=== PATIENT | female | born 1935 | race Caucasian/White ===

== ENCOUNTER → 2017-01-17 | Outpatient (CLI) | payer MEDICARE, BC ==
[~2017-01-17] MED LIST: ACARBOSE50 MG PO; AMARYL4 MG PO; APRESOLINE25 MG PO; B6-FOLIC ACID1 CAP PO; COUMADIN2.5 M1 PO; JANUVIA100 MG PO; K-DUR20 MEQ PO; LASIX20 MG PO; LIPITOR20 MG PO; SOTALOL80 MG PO
== END | disposition home or self-care (01) ==
LOC: RAD 10:58
DX: M85.88 Other specified disorders of bone density and structure, other site (principal)

== ENCOUNTER 2017-05-06 14:01 | Inpatient (IN) | payer MEDICARE, BC ==
[2017-05-06] VITALS (7 sets, daily range): BP systolic 140–176; BP diastolic 62–84
[~2017-05-06] VITALS: Ht 167.6 cm; Wt 71.2 kg
[~2017-05-06 14:01] MED LIST changes: +AMARYL2 MG PO; -AMARYL4 MG PO
[2017-05-06 14:46] LABS: BASO % 0.4 % (0.0-1.0); EOS % 0.1 % (1.0-4.0); HEMATOCRIT 31.5 % (37.0-47.0); HEMOGLOBIN 9.9 g/dl (12.0-16.0); MEAN CELL VOLUME 96.3 fl (81.0-99.0); MEAN CORPUSCULAR HGB 30.3 pg (27.0-31.0); MEAN CORPUSCULAR HGB CONC 31.4 g/dl (33.0-37.0); MEAN PLATELET VOLUME 8.9 fl (9.6-12.3); MONO # 0.4 10*3/uL (0.1-1.0); MONO % 4.7 % (3.0-9.0); NEUT % 80.3 % (47.0-73.0); PLATELET COUNT AUTOMATED 288 10*3/uL (130-400); RED BLOOD COUNT 3.27 10*6/uL (4.10-5.10); RED CELL DISTRI WIDTH 16.1 % (0-14.5); WHITE BLOOD COUNT 7.5 10*3/uL (4.8-10.8)
[2017-05-06 14:55] LABS: ACT PARTIAL THROMBO TIME 34.1 SECONDS (20.8-31.5); INTERNATIONAL NORM RATIO 2.5 (2.0-3.5)
[2017-05-06 14:57] LABS: CREATININE 1.45 mg/dL (0.55-1.02); POTASSIUM 4.6 mmol/L (3.5-5.1)
[2017-05-06 16:06] LABS: BILIRUBIN NEGATIVE (NEGATIVE); BLOOD NEGATIVE (NEGATIVE); CLARITY CLEAR (CLEAR); COLOR YELLOW (YELLOW); GLUCOSE NEGATIVE (NEGATIVE); KETONE NEGATIVE (NEGATIVE); LEUKO ESTERASE NEGATIVE (NEGATIVE); NITRITE NEGATIVE (NEGATIVE); UROBILINOGEN 0.2 E.U./dl (0.2-1.0)
[2017-05-06 16:12] LABS: BACTERIA 2+
[2017-05-06 16:14] LABS: RBC 0-2 rbc/hpf (0-2)
--- NOTE | 2017-05-06 17:55 | NUR ---
Time: 1754 A 82 year old FEMALE admitted to 5E under services of BROCK SEQUEIRA DO. Pt. arrived via bed from ER. Chief complaint: LEFT RADIAL HEAD FRACTURE. JULIANNE SANFORD
[2017-05-06] MEDS ORDERED: ALENDRONATE SOD70 M1 PO (18:26)
[2017-05-06] MEDS ORDERED: AMIODARONE HCL200 MG PO (18:27)
[2017-05-06] MEDS ORDERED: LANTUS SOL100 UNIT/1 SQ (18:29)
[2017-05-06] MEDS ORDERED: OMEPRAZOLE D/R20 MG PO (18:30)
[2017-05-06] MEDS ORDERED: OYSTER SHELL C500 M4 PO (18:31)
[2017-05-06] MEDS ORDERED: POLYSACC IRON150 MG PO (18:31)
--- NOTE | 2017-05-06 20:00 | NUR ---
ASSUMED CARE OF PATIENT. ASSESSMENT COMPLETE. RESTING IN BED. DENIES ANY PAIN AT THIS TIME. CALL LIGHT WITHIN REACH. WILL CONTINUE TO MONITOR.
[2017-05-07] VITALS: BP 138/56
--- NOTE | 2017-05-07 02:03 | NUR ---
PAIN MEDICATION NORCO ADMINISTERED PER PATIENTS REQUEST. RATES PAIN 7/10. WILL EVALUATE FOR EFFECTIVNESS.
--- NOTE | 2017-05-07 03:00 | NUR ---
EARLIER NORCO APPEARS TO BE EFFECTIVE. PT SLEEPING. RESP EASY AND NONLABORED ON ROOM AIR. NO DISTRESS NOTED. CALL LIGHT IN REACH
--- NOTE | 2017-05-07 06:19 | NUR ---
PT BS 75, ORANGE JUICE GIVEN AT THIS TIME. PT ASYMPTOMATIC.
[2017-05-07 06:48] LABS: BASO % 0.5 % (0.0-1.0); EOS % 0.4 % (1.0-4.0); HEMATOCRIT 27.7 % (37.0-47.0); HEMOGLOBIN 8.6 g/dl (12.0-16.0); LYMPH # 1.5 10*3/uL (1.3-4.4); MEAN CELL VOLUME 97.5 fl (81.0-99.0); MEAN CORPUSCULAR HGB 30.3 pg (27.0-31.0); MEAN PLATELET VOLUME 9.3 fl (9.6-12.3); MONO # 0.5 10*3/uL (0.1-1.0); MONO % 6.3 % (3.0-9.0); NEUT % 74.3 % (47.0-73.0); PLATELET COUNT AUTOMATED 260 10*3/uL (130-400); RED BLOOD COUNT 2.84 10*6/uL (4.10-5.10); RED CELL DISTRI WIDTH 16.3 % (0-14.5); WHITE BLOOD COUNT 8.1 10*3/uL (4.8-10.8)
[2017-05-07 07:04] LABS: ALBUMIN 2.5 gm/dl (3.1-4.5); CREATININE 1.32 mg/dL (0.55-1.02); PHOSPHOROUS 3.2 mg/dL (2.5-4.9); POTASSIUM 4.1 mmol/L (3.5-5.1)
[2017-05-07 07:08] LABS: FREE T4 1.59 ng/dl (0.76-1.46); THYROID STIM HORMONE (HS) 0.551 uIU/ml (0.358-4.75)
--- NOTE | 2017-05-07 07:30 | NUR ---
PT RESTING IN BED. RESP-EASY AND REGULAR. NO C/O PAIN AT THIS TIME. SLING ON LEFT ARM. CALL LIGHT IN REACH. SEE SHIFT ASSESSMENT.
[2017-05-07 07:55] LABS: VITAMIN D, 25-HYDROXY 26.8 ng/mL (30-100)
[2017-05-07 08:00] VITALS: BP 139/57
--- NOTE | 2017-05-07 10:05 | NUR ---
RAJAN MARINELLI OFFICE REGARDING PT COUMADIN AND MANAGEMENT OF IT PER DR. JIANG. THEY WILL CALL BACK AFTER THEY ASK HIM.
--- NOTE | 2017-05-07 10:21 | NUR ---
Button Sewing Machine Operator in to talk to patient. Patient states lives at home with her . There are 3 steps in the home. Physician: Eleuterio Crump Pharmacy: [facility] Home health services: no Patient's level of ADLs: MAX ASSIST Patient has working utilities: yes DME: walker Follow-up physician's appointment after d/c: will be made by hospitalist nurse director upon discharge. Does patient want to access PORTAL?: no Discharge plan: will have life care planner/delinquency prevention social worker follow up with patient. Patient was discharged from [facility] yesterday where she was receiving therapy after a knee replacement and was trying to walk up the steps to her house. She states the steps are bigger than the therapy steps, as she was trying to lift her leg up to the next step she fell backwards. She does have a hospital bed at home. Previous to this incident per the patient she was able to perform ADLs and drive. RYAN LYNCH
--- NOTE | 2017-05-07 10:30 | NUR ---
PT ASSISTED UP TO BEDSIDE COMMODE. TOLERATED ROUTINE MED WITH NO PROBLEM. CALL LIGHT IN REACH.
--- NOTE | 2017-05-07 10:31 | NUR ---
PHYSICAL THERAPY PATIENT EVALUATED ON 5, FULL EVALUATION TO FOLLOW. CONTINUE WTH PT PER PLAN OF CARW WITH FALL, MAX (a) X 2, NWB LEFT UE AND SLING- ACUTE FRACTURE/NEEDS ORTHO CONSULT AND ACUTE DEBILITY PRECAUTIONS. RECOMMNED TRANSFER TO ANOTHER FACILITY WITH ORTHO FOR ACUTE ELBOW FRACTURE. WILL REQUIRE RETURN TO SNF FOR SIGNIFICANTLY IMPAIRED MOBILITY. PATIENT IS HIGH COMPLEIXYT VIA CHART RVIEW, TESTS AND EVALUAITON: 60750. THANK YOU FOR THIS REFERRAL. JESSIE RAMOS,PT
--- NOTE | 2017-05-07 10:34 | NUR ---
DR. OLAF MARINELLI OFFICE CALLED. PT IS TO DOUBLE UP ON DOSE OF COUMADIN 2/5MG FOR 2 DAYS THEN 4MG FOR 2 DAYS THEN 2MG DAILY. CALLED DR. JIANG MADE AWARE.
[2017-05-07 12:00] VITALS: BP 146/58
--- NOTE | 2017-05-07 12:00 | NUR ---
SITTING UP IN CHAIR. BSG-168, SEE EMAR. CALL LIGHT IN REACH.
--- NOTE | 2017-05-07 12:26 | NUR ---
CALLED DR. AGGARWAL LEFT MESSAGE ON CELL PHONE REGARDING CONSULT TO CALL BACK.
--- NOTE | 2017-05-07 12:40 | NUR ---
DR. AGGARWAL CALLED PER HIM NON SURGICAL TREATMENT WITH ARM SLING. AND SEE AFTER DISCHARGE OR AT [facility] IF PT IS GOING THERE.
--- NOTE | 2017-05-07 12:41 | NUR ---
CALLED DR. JIANG MADE AWARE OF DR. AGGARWAL RECOMMENDATIONS.
--- NOTE | 2017-05-07 12:55 | NUR ---
PHYSICAL THERAPY Rohini seen this PM for her therapy session. Pt with Fx left elbow, NWB with sling and did well. Transfer sit/stand, standing balance with cues to lean forward for her standing balance with start off with MAX A X 1, into MOD A X 1, gait pivot and sit at bedside. Followed by transfer onto her bedside commode MOD CHRISTIAN MINISTRIES PROFESSOR X 1, then back supine in bed MOD/MAX A X 1, present and said that he is having a hard time with Rohini at home, Pt with call light going to stay. ISIS NUNN BROOCH AND BRACELET MAKER.
--- NOTE | 2017-05-07 13:36 | NUR ---
NATALIA FAXED REFERRAL TO [facility].
--- NOTE | 2017-05-07 13:36 | NUR ---
SW SPOKE WITH PT THIS MORNING. PT AGREED TO HAVE REFERRAL SENT TO [facility]. PT WAS AT FACILITY RECENTLY.
--- NOTE | 2017-05-07 14:00 | NUR ---
RESTING IN BED WITH AT HER SIDE. RESP-EASY AND REGULAR. NO C/O AT THIS TIME. CALL BRANDI NAM.
--- NOTE | 2017-05-07 15:44 | NUR ---
SW SPOKE WITH PT AND REGARDING WHICH FACILITY A REFERRAL NEEDED SENT TO. DID NOT LIKE THE CARE THAT THE PT RECEIVED AT [facility]. SW GAVE NAMES OF FACILITIES IN THE AREA. DID NOT WANT [facility]. WILL CHECK OUT [facility]. LIKED THE CARE THAT PT RECEIVED FROM [facility] BUT DOES NOT WANT TO DRIVE 50 MILES A DAY TO VISIT PT. WILL LET SW KNOW SATURDAY WHICH FACILITY TO SEND REFERRAL TO. NATALIA INFORMED PT AND PT MAY BE DISCHARGED EARLY 05-09-17 AFTER HER 3 NIGHT SATY.
[2017-05-07 16:00] VITALS: BP 145/48
--- NOTE | 2017-05-07 16:00 | NUR ---
RESTING IN BED WITH AT HER SIDE. BSG-180, SEE EMAR. NO C/O AT THIS TIME. CALL LIGHT IN REACH. SEE SHIFT ASSESSMENT.
--- NOTE | 2017-05-07 16:38 | NUR ---
Patient not available for OT evaluation this pm. She is with nursing at this time. OTR will recheck at a later date. Thank you for this referral. Maria A Hoskins OTR/l
--- NOTE | 2017-05-07 18:00 | NUR ---
RESTING IN BED. ENCOURAGED TCDB. TOLERATED ROUTINE MED WITH NO PROBLEM. CALL LIGHT IN REACH.
--- NOTE | 2017-05-07 18:40 | NUR ---
PT C/O LEFT ELBOW PAIN RATES PAIN 8 ON PAIN SCALE 0-10. MEDICATED WITH NORCO PO PER PRN ORDER, SEE EMAR. CALL LIGHT IN REACH.
[2017-05-07 20:00] VITALS: BP 144/57
--- NOTE | 2017-05-07 20:18 | NUR ---
PATIENT RESTING COMFORTABLY IN BED WATCHING TV. SLING IN PLACE TO LEFT ELBOW. SHE IS PLEASANT/COOPERATIVE WITH CARE. SEE ASSESSMENT. CALL LIGHT IN REACH. WILL MONITOR.
--- NOTE | 2017-05-07 22:28 | NUR ---
MEDICATED WITH PRN NORCO ORDERED FOR C/O LEFT ELBOW PAIN RATEDA 7/10
--- NOTE | 2017-05-07 23:30 | NUR ---
PATIENT STATES EARLIER NORCO WAS EFFECTIVE. IT TOOK HER ELBOW PAIN DOWN TO A 5/10.
[2017-05-08] VITALS: BP 137/59
--- NOTE | 2017-05-08 01:53 | NUR ---
SLEEPING, RESPIRATIONS EASY/REG. CALL LIGHT IN REACH.
--- NOTE | 2017-05-08 02:25 | NUR ---
24 HOUR CHART CHECK COMPLETE
[2017-05-08 06:50] LABS: BASO % 0.4 % (0.0-1.0); EOS # 0.1 10*3/uL (0.0-0.4); EOS % 0.9 % (1.0-4.0); HEMATOCRIT 29.4 % (37.0-47.0); LYMPH # 1.5 10*3/uL (1.3-4.4); LYMPH % 16.2 % (27.0-41.0); MEAN CELL VOLUME 99.3 fl (81.0-99.0); MEAN CORPUSCULAR HGB 30.4 pg (27.0-31.0); MEAN CORPUSCULAR HGB CONC 30.6 g/dl (33.0-37.0); MEAN PLATELET VOLUME 9.3 fl (9.6-12.3); MONO # 0.5 10*3/uL (0.1-1.0); MONO % 5.5 % (3.0-9.0); NEUT # 7.1 10*3/uL (2.3-7.9); NEUT % 76.4 % (47.0-73.0); PLATELET COUNT AUTOMATED 282 10*3/uL (130-400); RED BLOOD COUNT 2.96 10*6/uL (4.10-5.10); RED CELL DISTRI WIDTH 16.1 % (0-14.5); WHITE BLOOD COUNT 9.3 10*3/uL (4.8-10.8)
[2017-05-08 07:03] LABS: CREATININE 1.33 mg/dL (0.55-1.02); POTASSIUM 4.4 mmol/L (3.5-5.1)
[2017-05-08 07:09] LABS: INTERNATIONAL NORM RATIO 2.6 (2.0-3.5)
[2017-05-08 08:00] VITALS: BP 161/60
--- NOTE | 2017-05-08 09:00 | NUR ---
PT SITTING UP IN CHAIR. RESP-EASY AND REGULAR. DENIES ANY PAIN AT THIS TIME. CALL LIGHT IN REACH. SEE SHIFT ASSESSMENT.
--- NOTE | 2017-05-08 09:43 | NUR ---
PHYSICAL THERAPY Pt seen this AM 1:1 for her therapy session. Pt was supine in bed, transfer supine/sit MOD A X 1, sitting balance once up CGA X 1, Pt is NWB left UE, sling on. With much verbal cueing transfer sit/stand and standing balance X 4, with MAX A X 1, for standing balance and Pt afraid of falling, verbal cues to lean forward. On Pt's last stand pivot into bedside chair MAX A X 1, Pt with call light, phone and body alarm on, breakfast tray in front, ISIS NUNN SINGLE ENDING MACHINE OPERATOR.
--- NOTE | 2017-05-08 11:09 | NUR ---
Script Supervisor in to see patient. Patient requests [facility] upon discharge for continued therapy. Informed shoe lay out planner/director social welfare of patient's request. Patient states her son-in-law is coming in from [place] to build a ramp over her steps at her house.
--- NOTE | 2017-05-08 11:54 | NUR ---
Occupational Therapy evaluation completed this date on 5 with full eval to follow. Precautions include fall risk, fear of falling, NWB LUE, sling LUE, max +2 xfers, high complexity level. Recommend OT per POC to address safety in ADLs seated edge of bed, functional xfers training and SNF upon d/c to enable return home w/ at prior level of functioning. Thank you for this referral. Maria A Hoskins OTR/l
[2017-05-08 12:00] VITALS: BP 159/60
--- NOTE | 2017-05-08 12:30 | NUR ---
PT RESTING IN BED. BSG-267, SEE EMAR. NO C/O AT THIS TIME. PT DENIES ANY PAIN OR NEED FOR PAIN MEDICATION AT THIS TIME. CALL LIGHT IN REACH.
--- NOTE | 2017-05-08 12:41 | NUR ---
SW SPOKE WITH PT ABOUT [facility]. PT STATED THAT DID NOT LIKE [facility]. PT WANTS TO RETURN TO [facility].
--- NOTE | 2017-05-08 12:43 | NUR ---
NATALIA INQUIRED IF [facility] IF THEY WERE TAKING PT BACK. MARY SAID YES SHE IS ACCEPTED BACK AT FACILITY. PT REQUIRES A 3 DAY STAY AND WILL HAVE REQUIRED STAY COMPLETED 05-09-17.
--- NOTE | 2017-05-08 12:50 | NUR ---
PT UP IN CHAIR. PT DENIES ANY PAIN AT THIS TIME. CALL LIGHT IN REACH.
--- NOTE | 2017-05-08 13:27 | NUR ---
PHYSICAL THERAPY Rohini seen this PM for her therapy session and did better then her AM visit. Transfer supine/sit slow but with MIN A X 1, sitting balance X 5 min, CG X 1. Sit/stand and standing balance X 2 MAX A X 1, with muchverbal cueing. Followed by transfer to her bedside chair small steps, pivot and stand to tolerance then sit. Pt with call light and phone. ISIS NUNN RESEARCH AND DEVELOPMENT RESEARCHER.
--- NOTE | 2017-05-08 14:50 | NUR ---
SW COMPLETED PASRR IN [facility]. [facility] MED[facility] ST[facility] 3 NIGHT STAY REQUIRED AND PT CAN GO 05-09-17 IF MEDICALLY STABLE.
--- NOTE | 2017-05-08 14:56 | NUR ---
PT ASSISTED FROM RECLINER TO BED. C/O LEFT ELBOW PAIN, RATES PAIN 4 ON PAIN SCALE 0-10. MEDICATED WITH NORCO PO PER PRN ORDER, SEE EMAR. CALL LIGHT IN REACH. AT HER SIDE.
[2017-05-08 16:00] VITALS: BP 128/74; BP 158/64
--- NOTE | 2017-05-08 16:00 | NUR ---
PT RESTING IN BED. RESP-EASY AND REGULAR. BSG-198, SEE EMAR. CALL LIGHT IN REACH. SEE SHIFT ASSESSMENT.
--- NOTE | 2017-05-08 19:30 | NUR ---
PT. AWAKE, ALERT AND ORIENTED X 3 AT THIS TIME. LUNGS DIMINISHED T/O, ON RA, DENIES SOB. S1S2, PPP, DENIES CP. BS NORMO X 4 QUADS, DENIES NVD. MINOR SWEELING TO LEFT KNEE. LEFT ARM CURRENTLY IN SLING, PT. DENIES PAIN AT THIS TIME. CALL LIGHT WITHIN REACH, BED IN LOWEST POSITION, WHEELS LOCKED.
[2017-05-08 20:00] VITALS: BP 135/59
--- NOTE | 2017-05-08 23:49 | NUR ---
24 HOUR CHART CHECK COMPLETE
[2017-05-09] VITALS: BP 148/59
--- NOTE | 2017-05-09 00:15 | NUR ---
PTS. HR RE-CHECKED AT THIS TIME D/T HR OF 114. PTS. HR AT THIS TIME 94. UPDATED IN PTS. VITALS.
[2017-05-09 06:44] LABS: BASO # 0.1 10*3/uL (0.0-0.1); BASO % 0.7 % (0.0-1.0); EOS % 0.5 % (1.0-4.0); HEMATOCRIT 29.6 % (37.0-47.0); HEMOGLOBIN 9.2 g/dl (12.0-16.0); LYMPH # 1.1 10*3/uL (1.3-4.4); LYMPH % 14.6 % (27.0-41.0); MEAN CELL VOLUME 99.3 fl (81.0-99.0); MEAN CORPUSCULAR HGB 30.9 pg (27.0-31.0); MEAN CORPUSCULAR HGB CONC 31.1 g/dl (33.0-37.0); MEAN PLATELET VOLUME 9.3 fl (9.6-12.3); MONO # 0.4 10*3/uL (0.1-1.0); MONO % 5.6 % (3.0-9.0); NEUT # 5.9 10*3/uL (2.3-7.9); NEUT % 78.1 % (47.0-73.0); PLATELET COUNT AUTOMATED 283 10*3/uL (130-400); RED BLOOD COUNT 2.98 10*6/uL (4.10-5.10); RED CELL DISTRI WIDTH 16.2 % (0-14.5); WHITE BLOOD COUNT 7.5 10*3/uL (4.8-10.8)
[2017-05-09 07:10] LABS: CREATININE 1.18 mg/dL (0.55-1.02); POTASSIUM 4.1 mmol/L (3.5-5.1)
[2017-05-09 07:14] LABS: INTERNATIONAL NORM RATIO 3.8 (2.0-3.5)
[2017-05-09 08:00] VITALS: BP 160/56
--- NOTE | 2017-05-09 08:00 | NUR ---
LAB RESULTS AND ORDERS REVIEWED. PT IS A+0X3. SHE COMPLAINS OF LA PAIN 10/17. MEDICATED WITH GOOD EFFECT SEE EMAR. NO DISTRESS NOTED AT THIS TIME.
--- NOTE | 2017-05-09 08:38 | NUR ---
PHYSICAL THERAPY Rohini seen this AM and having a better day today, she is afraid of falling. Transfer supine/sit CGA X 1, sitting balance supervision x 1. Followed by sit/stand and standing balance MOD A X 1, then gait X 3, with 3 sitting rest just total 6' X 3, MAX A X 1, due to thinking that she is going to fall. Pt up in her bedside chair, call light and sling on left UE and is NWB with cues not to use her left arm. ISIS NUNN ELECTRON BEAM WELDING MACHINE OPERATOR.
--- NOTE | 2017-05-09 08:58 | NUR ---
Training Director in to see patient. When medically stable patient will be discharged to [facility].
--- NOTE | 2017-05-09 08:58 | NUR ---
Straw Hat Plunger Operator in to see patient. When medically stable patient will be discharged home with [facility].
--- NOTE | 2017-05-09 11:00 | NUR ---
PT SITTING UP IN CHAIR. NO DISTRESS NOTED AT THIS TIME. CALL LIGHT IN REACH
--- NOTE | 2017-05-09 11:24 | NUR ---
BGM 170. COVERED WITH 3 UNITS LISPRO. GIVEN IN LEFT UPPER ARM. [facility]
[2017-05-09 12:00] VITALS: BP 133/48
[2017-05-09] MEDS ORDERED: VICODIN 5-3001 EACH PO (12:27)
[2017-05-09] MEDS ORDERED: Vitamin D PO (12:27)
[2017-05-09] MEDS ORDERED: COUMADIN2 M1 PO (12:27)
--- NOTE | 2017-05-09 13:36 | NUR ---
NATALIA RECEIVED DISCHARGE ORDER. NATALIA CHECKED WITH [facility] RE[facility] ABOUT WHEN TO SCHELE TRANSPORTATION. ERIC SAID A COPLE HOURS. SW CHECKED WITH PT AND PT HAS A CONTRACT [facility] AMBULANCE. [facility] CAN NOT TRANSPORT FROM ONE [facility] TO ANOTHER. PT SAID TO PICK AN [place] ONE.
--- NOTE | 2017-05-09 13:38 | NUR ---
SW ARRANGED TRANSPORTATION WITH [facility] AT 3PM. SW NOTIFIED MARKETING ANALYTICS ANALYST CINDY FOR [facility] TO TRANPSORT PT AT 3PM TO [facility].
--- NOTE | 2017-05-09 13:40 | NUR ---
PHYSICAL THERAPY Rohini seen this PM 1:1 for her therapy. Pt was up in her bedside chair from this morning treatment. With verbal cueing transfer sit/stand and up on the count of three with MAX A X 1, from her chair. standing balance MOD A X 1, gait 6' X 1, MAX A X 1 and back sitting at bedside to rest. Followed by two more short gait's MOD A X 1, from her bed to stand, MAX A X 1, to gait 5' X 2, one sitting rest. Pt sling on left UE and still NWB left UE and she does want to use it. Pt back supine in bed MOD A X 1, call light, bed alarm on. ISIS NUNN SENIOR ELECTRICAL PROJECT MANAGER.
--- NOTE | 2017-05-09 15:38 | NUR ---
PHYSICAL THERAPY CO-SIGN I approve of the Phyical Therapy notes written above. JESSIE RAMOS PT
--- NOTE | 2017-05-09 16:25 | NUR ---
Discharge instructions reviewed with patient/family. Patient receptive and verbalizes understanding. Follow-up care arranged. Written instructions given to patient/family. JULIANNE SANFORD
--- NOTE | 2017-05-10 15:17 | NUR ---
OCCUPATIONAL THERAPY CO-SIGN I approve of the Occupational Therapy notes written above. LUZ ELENA MARTINS OTR/[place]
== END 2017-05-09 16:25 | disposition other institution (70) | DRG 562 ==
LOC: ED 14:01 → 5E 16:36 → EDHOLD 16:36 → 5E 17:15
PROVIDERS: Emergency Medicine; Student in an Organized Health Care Education/Training Program; ADMIT Emergency Medicine
DX: S52.125A Nondisplaced fracture of head of left radius, initial encounter for closed fracture (principal); E43 Unspecified severe protein-calorie malnutrition; N17.9 Acute kidney failure, unspecified; E11.22 Type 2 diabetes mellitus with diabetic chronic kidney disease; E11.65 Type 2 diabetes mellitus with hyperglycemia; D64.9 Anemia, unspecified; I48.91 Unspecified atrial fibrillation; W18.40XA Slipping, tripping and stumbling without falling, unspecified, initial encounter; E78.5 Hyperlipidemia, unspecified; N18.3 Chronic kidney disease, stage 3 (moderate); I12.9 Hypertensive chronic kidney disease with stage 1 through stage 4 chronic kidney disease, or unspecified chronic kidney disease; D72.810 Lymphocytopenia; R82.71 Bacteriuria; Z79.4 Long term (current) use of insulin; Y92.099 Unspecified place in other non-institutional residence as the place of occurrence of the external cause; Y93.89 Activity, other specified; Y99.8 Other external cause status; Z95.0 Presence of cardiac pacemaker; Z68.25 Body mass index [BMI] 25.0-25.9, adult; Z88.2 Allergy status to sulfonamides; Z79.01 Long term (current) use of anticoagulants; Z79.899 Other long term (current) drug therapy

== ENCOUNTER 2017-07-03 12:18 | Inpatient (IN) | payer OTHER, BC ==
[~2017-07-03] VITALS: Ht 167.6 cm; Wt 73.5 kg
[~2017-07-03 12:18] MED LIST changes: +ALENDRONATE SOD70 M1 PO; +AMIODARONE HCL200 MG PO; +COUMADIN2 M1 PO; +LANTUS SOL100 UNIT/1 SQ; +OMEPRAZOLE D/R20 MG PO; +OYSTER SHELL C500 M4 PO; +POLYSACC IRON150 MG PO; +VICODIN 5-3001 EACH PO; +Vitamin D PO
[2017-07-03 12:32] VITALS: BP 146/66
[2017-07-03] MEDS ORDERED: Amaryl2 MG PO (12:40)
[2017-07-03] MEDS ORDERED: Coumadin2 MG PO (12:40)
[2017-07-03] MEDS ORDERED: LIPITOR20 MG PO (12:40)
[2017-07-03] MEDS ORDERED: JANUVIA100 MG PO (12:40)
[2017-07-03] MEDS ORDERED: LASIX20 MG PO (12:41)
[2017-07-03] MEDS ORDERED: MYRBETRIQ25 M1 PO (12:41)
[2017-07-03] MEDS ORDERED: CALCIUM500 M1 PO (12:42)
[2017-07-03] MEDS ORDERED: POLYSACC IRON150 MG PO (12:42)
[2017-07-03] MEDS ORDERED: PRILOSEC20 M1 PO (12:42)
[2017-07-03] MEDS ORDERED: POTASSIUM CHLO20 MEQ PO (12:42)
[2017-07-03] MEDS ORDERED: FOSAMAX70 M1 PO (12:43)
[2017-07-03] MEDS ORDERED: AMIODARONE HYD200 MG PO (12:43)
[2017-07-03 13:31] LABS: INTERNATIONAL NORM RATIO 2.4 (2.0-3.5)
[2017-07-03 13:50] LABS: BASO # 0.1 10*3/uL (0.0-0.1); BASO % 0.8 % (0.0-1.0); EOS # 0.1 10*3/uL (0.0-0.4); EOS % 0.8 % (1.0-4.0); HEMATOCRIT 34.5 % (37.0-47.0); HEMOGLOBIN 10.9 g/dl (12.0-16.0); LYMPH # 1.1 10*3/uL (1.3-4.4); LYMPH % 16.8 % (27.0-41.0); MEAN CELL VOLUME 92.7 fl (81.0-99.0); MEAN CORPUSCULAR HGB 29.3 pg (27.0-31.0); MEAN CORPUSCULAR HGB CONC 31.6 g/dl (33.0-37.0); MEAN PLATELET VOLUME 9.7 fl (9.6-12.3); MONO # 0.5 10*3/uL (0.1-1.0); MONO % 7.9 % (3.0-9.0); NEUT # 4.8 10*3/uL (2.3-7.9); NEUT % 73.2 % (47.0-73.0); PLATELET COUNT AUTOMATED 240 10*3/uL (130-400); RED BLOOD COUNT 3.72 10*6/uL (4.10-5.10); RED CELL DISTRI WIDTH 14.9 % (0-14.5); WHITE BLOOD COUNT 6.6 10*3/uL (4.8-10.8)
[2017-07-03 14:02] LABS: ALBUMIN 3.1 gm/dl (3.1-4.5); CREATININE 1.72 mg/dL (0.55-1.02); POTASSIUM 4.4 mmol/L (3.5-5.1); TOTAL PROTEIN 7.6 gm/dL (6.4-8.2)
[2017-07-03 14:30] VITALS: BP 172/74
[2017-07-03 14:43] VITALS: BP 172/74
[2017-07-03 16:00] VITALS: BP 143/52
[2017-07-03 20:00] VITALS: BP 107/42
[2017-07-04] VITALS: BP 102/34
[2017-07-04 00:28] VITALS: BP 106/56
[2017-07-04 07:27] LABS: BASO % 0.6 % (0.0-1.0); EOS # 0.1 10*3/uL (0.0-0.4); LYMPH % 13.8 % (27.0-41.0); MEAN CELL VOLUME 93.8 fl (81.0-99.0); MEAN CORPUSCULAR HGB 29.3 pg (27.0-31.0); MEAN CORPUSCULAR HGB CONC 31.3 g/dl (33.0-37.0); MEAN PLATELET VOLUME 9.7 fl (9.6-12.3); MONO # 0.6 10*3/uL (0.1-1.0); MONO % 8.5 % (3.0-9.0); NEUT # 5.4 10*3/uL (2.3-7.9); NEUT % 75.7 % (47.0-73.0); PLATELET COUNT AUTOMATED 220 10*3/uL (130-400); RED BLOOD COUNT 3.41 10*6/uL (4.10-5.10); WHITE BLOOD COUNT 7.2 10*3/uL (4.8-10.8)
[2017-07-04 07:57] LABS: INTERNATIONAL NORM RATIO 2.4 (2.0-3.5)
[2017-07-04 07:58] LABS: ALBUMIN 2.8 gm/dl (3.1-4.5); CREATININE 1.5 mg/dL (0.55-1.02); FREE T4 1.7 ng/dl (0.76-1.46); POTASSIUM 4.6 mmol/L (3.5-5.1)
[2017-07-04 08:00] VITALS: BP 143/66
[2017-07-04 08:58] LABS: VITAMIN D, 25-HYDROXY 24.3 ng/mL (30-100)
[2017-07-04 12:00] VITALS: BP 148/60
[2017-07-04 16:00] VITALS: BP 143/55
[2017-07-04 20:00] VITALS: BP 106/48
[2017-07-05] VITALS: BP 134/48
[2017-07-05 08:00] VITALS: BP 172/62
[2017-07-05 11:58] VITALS: BP 151/80
[2017-07-05 16:00] VITALS: BP 121/56
[2017-07-05 20:00] VITALS: BP 133/99
[2017-07-06] VITALS: BP 151/64
[2017-07-06 08:00] VITALS: BP 153/58
[2017-07-06 08:02] LABS: INTERNATIONAL NORM RATIO 2.6 (2.0-3.5)
[2017-07-06 12:00] VITALS: BP 122/53
[2017-07-06 16:00] VITALS: BP 146/62
[2017-07-06 20:00] VITALS: BP 107/73
[2017-07-07] VITALS: BP 117/51
[2017-07-07 08:00] VITALS: BP 138/54
[2017-07-07 08:23] LABS: INTERNATIONAL NORM RATIO 2.5 (2.0-3.5)
[2017-07-07 12:00] VITALS: BP 139/48
[2017-07-07 16:00] VITALS: BP 110/90
[2017-07-07 20:00] VITALS: BP 147/58
[2017-07-08] VITALS: BP 146/69
[2017-07-08 08:00] VITALS: BP 152/64
[2017-07-08 12:00] VITALS: BP 145/60
[2017-07-08 16:00] VITALS: BP 138/56
== END 2017-07-08 19:16 | disposition other institution (70) | DRG 555 ==
LOC: ED 12:18 → EDHOLD 13:49 → 5E 13:49
PROVIDERS: Internal Medicine; Physician Assistant; Registered Nurse
DX: M25.561 Pain in right knee (principal); N17.0 Acute kidney failure with tubular necrosis; N18.4 Chronic kidney disease, stage 4 (severe); E11.22 Type 2 diabetes mellitus with diabetic chronic kidney disease; E11.65 Type 2 diabetes mellitus with hyperglycemia; I48.1 Persistent atrial fibrillation; Z96.642 Presence of left artificial hip joint; I12.9 Hypertensive chronic kidney disease with stage 1 through stage 4 chronic kidney disease, or unspecified chronic kidney disease; W18.30XA Fall on same level, unspecified, initial encounter; D64.9 Anemia, unspecified; N28.9 Disorder of kidney and ureter, unspecified; E78.2 Mixed hyperlipidemia; E04.1 Nontoxic single thyroid nodule; M25.562 Pain in left knee; Z79.01 Long term (current) use of anticoagulants; Y93.9 Activity, unspecified; Z79.899 Other long term (current) drug therapy; Y92.091 Bathroom in other non-institutional residence as the place of occurrence of the external cause; Z88.2 Allergy status to sulfonamides; Z95.0 Presence of cardiac pacemaker; Y99.8 Other external cause status; Z82.3 Family history of stroke; Z83.3 Family history of diabetes mellitus; Z51.81 Encounter for therapeutic drug level monitoring; Z79.84 Long term (current) use of oral hypoglycemic drugs

== ENCOUNTER → 2018-06-17 | Outpatient (CLI) | payer OTHER, BC ==
[~2018-06-17] MED LIST changes: +AMIODARONE HYD200 MG PO; +Amaryl2 MG PO; +CALCIUM500 M1 PO; +Coumadin2 MG PO; +FOSAMAX70 M1 PO; +MYRBETRIQ25 M1 PO; +POTASSIUM CHLO20 MEQ PO; +PRILOSEC20 M1 PO
== END | disposition home or self-care (01) ==
LOC: RAD 12:53
DX: M25.831 Other specified joint disorders, right wrist (principal); M79.601 Pain in right arm